=== PATIENT | male | born 1995 | race Caucasian/White ===

== ENCOUNTER 2018-06-02 08:13 | Emergency (ER) | payer OTHER, SELFPAY ==
[2018-06-02 08:23] VITALS: BP 133/85; PULSE 59; RESP 16; TEMP 36.9; O2SAT 99; BMI 25.8
--- NOTE | 2018-06-02 08:36 | PC.NURSE ---
pt reports hives for the past 2-3 months, and lip/facial swelling, there is no evidence of this on his arrival today and lungs are clear. He did report his daughter had a swollen eye last week and was taken to the emergency room and placed on steroids. He has admitted to difficulty breathing one time since this all started but now is resolved. He denies using any benadryl or any treatment that this resolves on it's own.
[2018-06-02 09:04] VITALS: BP 130/85; PULSE 59; RESP 16; O2SAT 100
[2018-06-02] MEDS: predniSONE 20 MG TABLET 40 MG PO (09:10)
--- NOTE | 2018-06-02 09:23 | ED_ITS ---
HPI - Allergic Reaction General Chief complaint: Allergic Reaction Stated complaint: FACE SWELLING Time Seen by Provider: 06/02/18 08:15 Source: patient Mode of arrival: ambulatory Limitations: no limitations History of Present Illness HPI narrative: 22M nonsmoker, otherwise healthy, presents alone with allergic reaction type symptoms gradually worsening over days. He denies new food, lotion, pets or other obvious or even suggested trigger. He's had occasions of itchy hives and swollen lips. He denies any trouble breathing or swallowing. He denies any medications to help treat this. He is otherwise well and free of complaint. He denies any history of the same. Related Data Previous Rx's Medication Instructions Recorded prednisone See Rx Instructions .ROUTE 06/02/18 .COMPLEX #30 tab Allergies Allergy/AdvReac Type Severity Reaction Status Date / Time No Known Drug Allergies Allergy Verified 06/02/18 08:26 Review of Systems Constitutional Denies chills, Denies fever(s), Denies lethargy and Denies weakness Eyes Denies change in vision, Denies eye discharge, Denies irritation and Denies loss of vision ENT Ears, Nose, Mouth, and Throat: Denies change in voice, Reports lip swelling, Denies neck pain and Denies sore throat Comments: lip swelling Cardiovascular Denies chest pain, Denies irregular heart rhythm, Denies lightheadedness, Denies palpitations, Denies dyspnea, Denies dyspnea on exertion and Denies orthopnea Respiratory Denies cough, Denies dyspnea, Denies dyspnea on exertion and Denies wheezing Gastrointestinal Gastrointestinal: Denies abdominal pain, Denies change in bowel habits, Denies diarrhea, Denies nausea and Denies vomiting Genitourinary Denies hematuria, Denies flank pain, Denies urinary incontinence and Denies urinary urgency Musculoskeletal Denies neck pain Integumentary/Breasts Denies pruritus, Denies erythema, Reports rash and Denies wounds Neurologic Denies confusion, Denies loss of vision and Denies weakness Psychiatric Denies anxiety, Denies confusion, Denies depression, Denies homicidal ideation a nd Denies suicidal ideation Endocrine Denies palpitations Hematologic/Lymphatic Denies easy bruising Allergic/Immunologic Reports urticaria, Reports lip swelling and Denies wheezing PFSH Social History Smoking Status: Former smoker Social History Smoking Status: Former smoker Exam Narrative Exam Narrative: GENERAL: 22-year-old male, in no obvious or significant stress HEAD: Atraumatic. Normocephalic. No temporal or scalp tenderness. EYES: Pupils equal round and reactive. Extraocular motions intact. No scleral icterus. No injection or drainage. ENT: Nose without bleeding, purulent drainage or septal hematoma. Throat without erythema, tonsillar hypertrophy or exudate. Uvula midline. Airway patent. NECK: Trachea midline. No JVD or lymphadenopathy. Supple, nontender, no meningeal signs. CARDIOVASCULAR: Regular rate and rhythm without murmurs, gallops, or rubs. RESPIRATORY: Clear to auscultation. Breath sounds equal bilaterally. No wheezes, rales, or rhonchi. GASTROINTESTINAL: Abdomen soft, non-tender, nondistended. No hepato- splenomegaly, or palpable masses. No guarding. EXTREMITIES: No clubbing, cyanosis, or edema. No joint tenderness, effusion, or edema noted. BACK: Nontender without deformity or crepitance. No flank tenderness. NEURO: AOx3. SKIN: No rash or erythema. Initial Vital Signs Initial Vital Signs: Vital Signs Temperature 98.5 F 06/02/18 08:23 Pulse Rate 59 L 06/02/18 08:23 Respiratory Rate 16 06/02/18 08:23 Blood Pressure 133/85 06/02/18 08:23 Pulse Oximetry 99 06/02/18 08:23 Course Orders Ordered: Discontinued Medications Prednisone (Deltasone) 40 mg PO NOW ONE Stop: 06/02/18 08:51 Last Admin: 06/02/18 09:10 Dose: 40 mg Ranitidine HCl (Zantac) 300 mg PO NOW ONE Stop: 06/02/18 08:51 Last Admin: 06/02/18 09:11 Dose: 300 mg Vital Signs - 8 hr 06/02/18 08:23 Temperature 98.5 F Pulse Rate 59 L Respiratory Rate 16 Blood Pressure 133/85 Pulse Oximetry 99 Discharge Plan Departure Patient Disposition: Home Clinical Impression: Allergic reaction Discharge Date/Time: 06/02/18 09:05 Interventions: ED Discharge Assessment Last Done: 06/02/18 09:04 Instructions: DI for Hives Activity Restrictions/Additional Instructions: *You have been diagnosed with [ allergic reaction, unknown cause ] *What to do: *Take medications as directed: over the counter antihistamines (benadryl and pepcid) *Follow up with your primary care provider in 2-3 days, call for an appointment. Let them know you were seen in the Emergency Department and that we ask that you be seen in follow up *Return to ER if you should have any new, worsening or concerning symptoms Prescriptions: New prednisone 10 mg tablet See Rx Instructions .ROUTE .COMPLEX Qty: 30 RF: 0
== END 2018-06-02 09:05 | disposition home or self-care (01) ==
PROVIDERS: Emergency Provider Emergency Medicine
DX: T78.40XA Allergy, unspecified, initial encounter (principal)
CPT/HCPCS: 99282; 99283